=== PATIENT | male | born 1960 | race Caucasian/White ===

== ENCOUNTER 2018-07-21 11:42 | Emergency (ER) | payer BC ==
[~2018-07-21] VITALS: Ht 177.8 cm; Wt 120.2 kg
[2018-07-21 12:01] VITALS: BP_SYST 166
--- NOTE | 2018-07-21 12:06 | NUR ---
Patient to ER bed 7 to gown for evaluation. Side rails up. Report given to Nelly DANIEL.
--- NOTE | 2018-07-21 12:20 | NUR ---
Patient presented to ER with lower back pain, and foul smelling urine. Patient A&O, afebrile, skin pink, respirations equal bilat, pain 2/10, intermittent nausea, denies D/V. patient states lower back pain x1 week, foul smelling & cloudy urine for several days, denies pain with urination, denies urine frequency. Patient states history includes: diabete type 2, hypertension, bilat hearing loss, bilat hearing aids.
--- NOTE | 2018-07-21 12:30 | NUR ---
ER Dr. Kearney at bedside examining patient.
[2018-07-21 13:03] LABS: CALCIUM 9.6 mg/dL (8.4-11.0); CREATININE 0.72 mg/dL (0.55-1.30); POTASSIUM 4.1 mmol/L (3.5-5.1)
--- NOTE | 2018-07-21 13:38 | NUR ---
Patient given written and verbal discharge instructions and verbalizes understanding. ER MD Kearney discussed with patient the results and treatment provided. Patient in stable condition. ID arm band removed. Rx of Tramadol Hydrochloride given. Patient educated on pain management and to follow up with PMD. Pain Scale 0. Opportunity for questions provided and answered. Medication side effect fact sheet provided.
[2018-07-21 13:39] VITALS: BP_SYST 152
== END 2018-07-21 13:38 | disposition home or self-care (01) ==
LOC: SED 11:42
DX: R10.9 Unspecified abdominal pain (principal); E11.9 Type 2 diabetes mellitus without complications; I10 Essential (primary) hypertension
CPT/HCPCS: 36415; 80048; 81002; 99283; 99284